=== PATIENT | female | born 1995 | race Caucasian/White ===

== ENCOUNTER 2017-09-06 19:57 | Emergency (ER) | payer OTHER ==
[2017-09-06 20:55] LABS: ABSOLUTE BASOPHIL COUNT 0 /CUMM (0.0-0.2); ABSOLUTE EOSINOPHIL COUNT 0 /CUMM (0.0-0.7); ABSOLUTE GRANULOCYTE CT 9.8 /CUMM (1.4-6.5); ABSOLUTE LYMPH COUNT 0.5 /CUMM (1.2-3.4); ABSOLUTE MONOCYTE COUNT 0.4 /CUMM (0.10-0.60); BASOPHIL % 0 % (0.0-2.0); EOSINOPHIL % 0.4 % (0-5); GRANULOCYTE % 91.3 % (42.2-75.2); HEMATOCRIT 43.4 % (37-47); MEAN CORPUSCULAR HGB 30.7 PG (27.0-31.0); MEAN CORPUSCULAR HGB CONC 33.4 G/DL (33.0-37.0); MEAN CORPUSCULAR VOLUME 92.1 FL (81.0-99.0); PLATELET COUNT 299 /CUMM (130-400); RBC DISTRIBUTION WIDTH 11.9 % (11.5-14.5); RED BLOOD CELL CT 4.71 /CUMM (4.20-5.40); WHITE BLOOD CELL COUNT 10.7 /CUMM (4.8-10.8)
--- NOTE | 2017-09-06 21:01 | ED GI/GU/ABDOMINAL COMPLAINT ---
History of Present Illness General Chief Complaint: General Adult Stated Complaint: PT IS VOMITING ALL DAY CAN'T EAT Source: patient Exam Limitations: no limitations Vital Signs & Intake/Output Vital Signs & Intake/Output Vital Signs Date Time Temp Pulse Resp B/P B/P Pulse O2 O2 Flow FiO2 Mean Ox Delivery Rate 09/07 2151 97.8 100 20 113/57 98 09/06 2017 98.0 116 20 123/80 99 Allergies Coded Allergies: No Known Allergies (09/06/17) Reconcile Medications Ondansetron (Zofran Odt) 4 MG TAB.RAPDIS 1 TAB SL TID PRN nausea Triage Note: PER PT NVD ALL DAY SINCE 6AM ALSO CO FEVERS BD CRAMPING Triage Nurses Notes Reviewed? yes ? n Is pt currently ? No Onset: Gradual Duration: hour(s): Timing: multiple episodes today HPI: 21YO female presents to ED complaining of nausea, vomiting, diarrhea beginning around 6AM this morning. Patient also reports dizziness and leg cramps which she associates with dehydration, states she has a history of this in the past. Patient reports mild headache, weakness, and tactile fevers. The patient denies blurry vision, urinary symptoms, sick contact. (Anne-Marie Harrison) Past History Travel History Traveled to [place] past 21 day No Medical History Any Pertinent Medical History? none Neurological: NONE EENT: NONE Cardiovascular: NONE Respiratory: NONE Gastrointestinal: NONE Hepatic: NONE Renal: NONE Musculoskeletal: NONE Psychiatric: NONE Endocrine: NONE Surgical History Surgical History: non-contributory Psychosocial History What is your primary language Yoruba Tobacco Use: Never used Family History Hx Contributory? No (Anne-Marie Harrison) Review of Systems Review of Systems Constitutional: Reports: see HPI. EENTM: Reports: no symptoms. Respiratory: Reports: no symptoms. Cardiovascular: Reports: no symptoms. GI: Reports: see HPI. Genitourinary: Reports: no symptoms. Musculoskeletal: Reports: see HPI. Skin: Reports: no symptoms. Neurological/Psychological: Reports: no symptoms. Hematologic/Endocrine: Reports: no symptoms. Immunologic/Allergic: Reports: no symptoms. All Other Systems: Reviewed and Negative (Anne-Marie Harrison) Physical Exam Physical Exam General Appearance: well developed/nourished, no apparent distress, alert, awake Head: atraumatic, normal appearance Eyes: Bilateral: normal appearance. Ears, Nose, Throat, Mouth: hearing grossly normal Neck: normal inspection, supple, full range of motion Respiratory: normal breath sounds, no respiratory distress, lungs clear Cardiovascular: tachycardia Gastrointestinal: normal bowel sounds, soft, no organomegaly, periumbilical tenderness without gaurding, -McBurney's point tenderness, -Rosving's sign Back: normal inspection, normal range of motion Extremities: normal range of motion Neurologic/Psych: awake, alert, oriented x 3 Skin: intact, normal color, warm/dry Core Measures ACS in differential dx? No Sepsis Present: No Sepsis Focused Exam Completed? No (Jenni OCONNOR,Anne-Marie Mccoy) Progress Differential Diagnosis: appendicitis, bowel obstruction, cholecystitis, ectopic , gastritis, intrauterine , peptic ulcer, PUD/GERD, SBO, gastroenteritis Plan of Care: Orders Procedure Date/time Status Add-on Test (ER Only) 09/06 2099 Active LIPASE 09/06 2042 Complete URINE 09/06 2018 Complete URINALYSIS 09/06 2018 Complete MAGNESIUM 09/06 2018 Complete COMPREHENSIVE METABOLIC PANEL 09/06 2018 Complete CBC WITHOUT DIFFERENTIAL 09/06 2018 Complete Laboratory Tests 09/06/17 2100: Lipase Cancelled 09/06/172042: Anion Gap 11, Estimated GFR > 60, BUN/Creatinine Ratio 25.0, Glucose 98, Calcium 9.4, Magnesium 1.6, Total Bilirubin 0.7, AST 25, ALT 32, Alkaline Phosphatase 89 , Total Protein 7.3, Albumin 4.3, Globulin 3.0, Albumin/Globulin Ratio 1.4, Lipase 38, CBC w Diff NO MAN DIFF REQ, RBC 4.71, MCV 92.1, MCH 30.7, MCHC 33.4, RDW 11.9, MPV 8.0, Gran % 91.3 H, Lymphocytes % 4.6 L, Monocytes % 3.7, Eosinophils % 0.4, Basophils % 0, Absolute Granulocytes 9.8 H, Absolute Lymphocytes 0.5 L, Absolute Monocytes 0.4, Absolute Eosinophils 0, Absolute Basophils 0 09/06/172036: Urine Color YEL, Urine Clarity CLDY H, Urine pH 6.0, Ur Specific [place] >= 1.030, Urine Protein 30 H, Urine Ketones 40 H, Urine Nitrite NEG, Urine Bilirubin NEG, Urine Urobilinogen 0.2, Ur Leukocyte Esterase NEG, Ur Microscopic SEDIMENT EXAMINED, Urine RBC 1-3, Urine WBC 1-3 H, Ur Epithelial Cells PACKD H , Urine Bacteria MOD H, Urine Mucus MOD H, Urine Hemoglobin NEG, Urine Glucose NEG, Urine Test NEGATIVE Patient's labs are nonactionable. Her vital signs have improved following IV fluids. Patient feels improvement in her symptoms following IV Zofran. She is tolerating PO. There is no leukocytosis. Patient afebrile, no right lower quadrant tenderness, low suspicion for acute appendicitis at this time. Patient feels ready to go home. Her symptoms are likely related to gastritis. She was given strict return precautions which she understands and agrees with. Initial ED EKG: none (Jenni OCONNOR,Anne-Marie Mccoy) Departure Departure Disposition: HOME OR SELF CARE Condition: Stable Clinical Impression Primary Impression: Nausea vomiting and diarrhea Secondary Impressions: Abdominal pain Qualifiers: Abdominal location: unspecified location Qualified Code: R10.9 - Unspecified abdominal pain Referrals: Patient Has No Primary Care Dr (PCP/Family) Additional Instructions: Take Zofran as prescribed as needed for nausea. Increase fluids as tolerated. Return if any worsening symptoms such as increasing vomiting, abdominal pain, fevers. Please note that there might be incidental findings in your evaluation that are unrelated to the current emergency department visit. Please notify your primary care doctor about this emergency department visit in order to obtain and review all of the testing performed so that these incidental findings can be monitored as needed. If you had an x-ray performed, please understand that some fractures may not be seen on the initial set of x-rays. If your symptoms persist you might need a repeat set of x-rays to check for such a fracture. If you had a laceration evaluated, please understand that foreign bodies such as glass or wood may not be visible to the naked eye or on plain x-rays. If the wound becomes red, swollen, increasingly more painful or if there is any drainage from the wound, please have it reevaluated by a physician for the possibility of a retained foreign body. If you're unable to follow up as outlined in the discharge instructions please return to the emergency department. Thank you for choosing the [facility] Emergency Department for your care. It was a pleasure to serve you today. Departure Forms: Customer Survey General Discharge Information Prescriptions: Current Visit Scripts Ondansetron (Zofran Odt) 1 TAB SL TID PRN nausea #10 TAB (Jenni OCONNOR,Anne-Marie Mccoy) PA/PARTS ROOM ASSISTANT Co-Sign Statement Statement: ED Attending supervision documentation- x I saw and evaluated the patient. I have also reviewed all the pertinent lab results and diagnostic results. I agree with the findings and the plan of care as documented in the PA's/PARTS ROOM ASSISTANT's documentation. [] I have reviewed the ED Record and agree with the PA's/PARTS ROOM ASSISTANT's documentation. [] Additions or exceptions (if any) to the PAs/PARTS ROOM ASSISTANT's note and plan are summarized below: [] (Gracy AUGUSTINE,Devante)
[2017-09-06 21:52] VITALS: BP 113/57
[2017-09-06] MEDS ORDERED: ZOFRAN ODT4 M1 SL (23:02)
== END 2017-09-06 23:08 ==
LOC: ERH 19:57
PROVIDERS: Emergency Medicine
DX: R11.2 Nausea with vomiting, unspecified (principal); R19.7 Diarrhea, unspecified; R10.9 Unspecified abdominal pain
CPT/HCPCS: 81001; 81025; 96361; 96374; J2405